=== PATIENT | female | born 1955 | race Caucasian/White ===

== ENCOUNTER 2017-12-21 17:19 | Emergency (ER) | payer BC, OTHER ==
[~2017-12-21] VITALS: Ht 160 cm; Wt 69.0 kg
[2017-12-21 17:24] VITALS: TEMP 36.3; Ht 160 cm; Wt 69.0 kg
[2017-12-21] MEDS ORDERED: ALUMINUM/MAGNESIUM SUSP 30 ML UDC PO STA (17:34)
[2017-12-21] MEDS ORDERED: PANTOprazole SOD 40 MG TAB PO STA (17:34)
--- NOTE | 2017-12-21 17:44 | EMERGENCY ROOM VISIT NOTE ---
History Report prepared by Snehal: Alfred Luz Under the Supervision of: Maya PeraltaO. First contact with patient: 17:26 Chief Complaint: CHEST PAIN Stated Complaint: CHEST PAIN History of Present Illness The patient is a 62 year old female who presents to the Emergency Room with complaints of a persistent need for a cardiac assessment that started around 2 hours ago. She states that when she first started having chest pain this afternoon, she thought was indigestion, but it did not go away and kept coming and going. The patient adds that she has also been having pain in between her shoulders, that she has currently. She says that she currently only has mild chest pain. The patient adds that she was a little lightheaded earlier which is unusual for her. The patient says that she has been exercising more recently, but did not notice any pain during her 30-minute workout yesterday or her 2 mile walk. She denies any abdominal pain or calf pain. The patient notes that her mother had 3 heart attacks, but she has no history of family members having them at an age less than 50. The patient quit smoking around 5 years ago. She has no noted history of stress tests or heart catheterizations. Source of History: patient, spouse/significant other Onset: 2 hours ago Position: chest Quality: other (pain) Timing: other (persistent need for cardiac assessment) Associated Symptoms: + back pain (between shoulder blades), No abdominal pain Note: Lightheaded earlier. Denies calf pain. Review of Systems See HPI for pertinent positives & negatives. A total of 10 systems reviewed and were otherwise negative. Past Medical & Surgical Medical Problems: (1) No pertinent past medical history Family History Heart disease Social History Smoking Status: Former Smoker Drug Use: none Marital Status: Housing Status: lives with family Current/Historical Medications Scheduled Cholecalciferol (Vitamin D3), 2,000 INTER.UNIT PO DAILY Cyanocobalamin (Vitamin B-12), 2 TABS PO DAILY Stxmsqveehd-Msxcgysveep-Hve C- (Glucosamine Chondroitin), 1 TAB PO DAILY Allergies Coded Allergies: No Known Allergies (Unverified , 03/06/13) Physical Exam Vital Signs Date Time Temp Pulse Resp B/P (MAP) Pulse Ox O2 Delivery O2 Flow Rate FiO2 12/21/17 19:00 52 16 128/74 97 Room Air 4/6/18 18:14 97 Room Air 12/21/17 18:14 97 Room Air 12/21/17 18:12 Room Air 12/21/17 18:12 64 12/21/17 17:24 36.3 69 16 150/79 97 Room Air Physical Exam GENERAL: Patient is awake, alert, and in no acute distress. Patient is resting comfortably and showing no signs of anxiety EYES: The conjunctivae are clear. The pupils are round and reactive. EARS, NOSE, MOUTH AND THROAT: The nose is without any evidence of any deformity. Mucous membranes are moist tongue is midline NECK: The neck is nontender and supple. RESPIRATORY: Normal respiratory effort is noted there is no evidence of wheezing rhonchi or rales CARDIOVASCULAR: Regular rate and rhythm noted there no murmurs rubs or gallops normal S1 normal S2 GASTROINTESTINAL: The abdomen is soft. Bowel sounds are present in all quadrants. Abdomen is nontender PELVIS: The Pelvis is stable. No tenderness to palpation is noted. BACK: No midline tenderness or or step-off noted range of motion in flexion extension as well as rotation no signs of muscle spasm noted MUSCULOSKELETAL/EXTREMITIES: There is no evidence of gross deformity full range of motion is noted in the hips and shoulders SKIN: There is no obvious evidence of any rash. There are no petechiae, pallor or cyanosis noted. NEUROLOGIC: Patient is awake alert and oriented x3. Medical Decision & Procedures ER Provider Diagnostic Interpretation: X-ray results as stated below per interpretation by me and the radiologist. CHEST ONE VIEW PORTABLE CLINICAL HISTORY: Difficult chest pain COMPARISON STUDY: No previous studies for comparison. FINDINGS: The cardiac and mediastinal contours are normal. There is no evidence of focal pulmonary consolidation. There is no evidence of failure. No pleural effusions are visualized.[ IMPRESSION: No active disease in the chest. Electronically signed by: Bridger Luis M.D. 12/21/2017 5:45 PM Dictated Date/Time: 12/21/2017 5:45 PM Laboratory Results 12/21/17 18:05 Red Blood Count 4.64, Mean Corpuscular Volume 88.8, Mean Corpuscular Hemoglobin 31.0, Mean Corpuscular Hemoglobin Concent 35.0, Mean Platelet Volume 8.7, Neutrophils (%) (Auto) 50.1, Lymphocytes (%) (Auto) 36.1, Monocytes (%) (Auto) 11.7, Eosinophils (%) (Auto) 1.5, Basophils (%) (Auto) 0.5, Neutrophils # (Auto ) 4.04, Lymphocytes # (Auto) 2.91, Monocytes # (Auto) 0.94, Eosinophils # (Auto ) 0.12, Basophils # (Auto) 0.04 12/21/17 18:05 Test 12/21/17 18:05 White Blood Count 8.06 K/uL (4.8-10.8) Red Blood Count 4.64 M/uL (4.2-5.4) Hemoglobin 14.4 g/dL (12.0-16.0) Hematocrit 41.2 % (37-47) Mean Corpuscular Volume 88.8 fL (80-100) Mean Corpuscular Hemoglobin 31.0 pg (25-34) Mean Corpuscular Hemoglobin Concent 35.0 g/dl (32-36) Platelet Count 215 K/uL (130-400) Mean Platelet Volume 8.7 fL (7.4-10.4) Neutrophils (%) (Auto) 50.1 % Lymphocytes (%) (Auto) 36.1 % Monocytes (%) (Auto) 11.7 % Eosinophils (%) (Auto) 1.5 % Basophils (%) (Auto) 0.5 % Neutrophils # (Auto) 4.04 K/uL (1.4-6.5) Lymphocytes # (Auto) 2.91 K/uL (1.2-3.4) Monocytes # (Auto) 0.94 K/uL (0.11-0.59) Eosinophils # (Auto) 0.12 K/uL (0-0.5) Basophils # (Auto) 0.04 K/uL (0-0.2) RDW Standard Deviation 42.6 fL (36.4-46.3) RDW Coefficient of Variation 13.2 % (11.5-14.5) Immature Granulocyte % (Auto) 0.1 % Immature Granulocyte # (Auto) 0.01 K/uL (0.00-0.02) Prothrombin Time 10.1 SECONDS (9.0-12.0) Prothromb Time International Ratio 1.0 (0.9-1.1) Activated Partial Thromboplast Time 24.1 SECONDS (21.0-31.0) Partial Thromboplastin Ratio 0.9 Anion Gap 5.0 mmol/L (3-11) Est Creatinine Clear Calc Drug Dose 59.0 ml/min Estimated GFR () 77.8 Estimated GFR (Non- 67.1 BUN/Creatinine Ratio 17.1 (10-20) Calcium Level 9.1 mg/dl (8.5-10.1) Total Bilirubin 0.5 mg/dl (0.2-1) Direct Bilirubin 0.1 mg/dl (0-0.2) Aspartate Amino Transf (AST/SGOT) 31 U/L (15-37) Alanine Aminotransferase (ALT/SGPT) 47 U/L (12-78) Alkaline Phosphatase 76 U/L (45-117) Total Creatine Kinase 58 U/L (26-192) Creatine Kinase MB 0.6 ng/ml (0.5-3.6) Creatine Kinase MB Ratio 1.0 (0-3.0) Troponin I < 0.015 ng/ml (0-0.045) Total Protein 7.3 gm/dl (6.4-8.2) Albumin 3.7 gm/dl (3.4-5.0) Lipase 220 U/L (73-393) Laboratory results per my review. Medications Administered Medications (Trade) Dose Ordered Sig/Pamela Route Start Time Stop Time Status Last Admin Dose Admin Al Hydroxide/Mg Hydroxide (Maalox Susp) 30 ml NOW STAT PO 12/21/17 17:34 12/21/17 17:36 DC 12/21/17 18:11 30 ML Pantoprazole Sodium (Protonix Tab) 40 mg NOW STAT PO 12/21/17 17:34 12/21/17 17:36 DC 12/21/17 18:12 40 MG ECG Per My Interpretation Indication: chest pain Rate (beats per minute): 55 Rhythm: sinus bradycardia Findings: no ectopy, other (no acute ST segment abnormalities) Comparison ECG Date: no prior available ED Course 1732: The patient was evaluated in room C4. A complete history and physical examination were performed. 1733: Protonix Tab 40 mg PO, Maalox Susp 30 ml PO. 1914: Upon reevaluation, the patient is resting. We did a heart score together in the room which came out at 3, and she would prefer to follow-up with her doctor for a stress test. I discussed the results and treatment plan with her. She verbalized agreement of the treatment plan. She was discharged home. Medical Decision Differential diagnosis: Etiologies such as cardiac ischemia, aortic dissection, pulmonary embolism, pneumonia, pneumothorax, musculoskeletal, infections, pericarditis, myocarditis , esophageal rupture, gastrointestinal, as well as others were entertained. Nursing notes reviewed. The patient is a 62-year-old female who presented to the emergency department for chest discomfort. The patient was found to have normal troponin. Her EKG did not show any acute ischemic changes. I discussed patient's laboratory and radiographic studies with her. I also discussed the limitations of the emergency department workup for chest pain with her. While in the room I calculated a heart score with the patient. I feel that her score was 2-3 by my calculation. I discussed what this would represent and that would likely represent a 1-2% chance that this represents an acute coronary syndrome or that the patient would have an acute coronary episode within the next 30 days. I explained her that she may require further study such as a provocative test such as a stress test. I encouraged her to rest and avoid any strenuous activity. I also encouraged her to continue all medications as prescribed. She was also encouraged to return to the emergency department immediately if symptoms change worsen or the need arises. Otherwise I also offered to discuss her case with the hospitalist for possible inpatient management but after our discussion she requested to follow-up with her primary care physician first. Medication Reconcilliation Current Medication List: was personally reviewed by me Blood Pressure Screening Patient's blood pressure: Elevated blood pressure Blood pressure disposition: Elevated BP felt to be situational Impression Primary Impression: Atypical chest pain Scribe Attestation The scribe's documentation has been prepared under my direction and personally reviewed by me in its entirety. I confirm that the note above accurately reflects all work, treatment, procedures, and medical decision making performed by me. Departure Information Dispostion Home / Self-Care Referrals Reinaldo Davey M.D.(PRISCILLA) (PCP) Forms Call Back Authorization, HOME CARE DOCUMENTATION FORM, IMPORTANT VISIT INFORMATION Patient Instructions ED Chest Pain Atypical Unkn Cause, [facility] Additional Instructions Continue all medications as prescribed. Rest and avoid any strenuous activity. Follow-up with your family doctor for reevaluation. I would recommend a stress test if symptoms do not resolve. Return to the emergency department immediately if symptoms change worsen or the need arises.
--- NOTE | 2017-12-21 17:47 | DIAGNOSTIC IMAGING REPORT ---
CHEST ONE VIEW PORTABLE CLINICAL HISTORY: Difficult chest pain COMPARISON STUDY: No previous studies for comparison. FINDINGS: The cardiac and mediastinal contours are normal. There is no evidence of focal pulmonary consolidation. There is no evidence of failure. No pleural effusions are visualized.[ IMPRESSION: No active disease in the chest. Electronically signed by: Bridger Luis M.D. 12/21/2017 5:45 PM Dictated Date/Time: 12/21/2017 5:45 PM
[2017-12-21 18:14] VITALS: O2SAT 97
[2017-12-21 18:21] LABS: BASO % 0.5 %; BASO ABS # 0.04 K/uL (0-0.2); EOS % 1.5 %; EOS ABS # 0.12 K/uL (0-0.5); HEMATOCRIT 41.2 % (37-47); HEMOGLOBIN 14.4 g/dL (12.0-16.0); IG# 0.01 K/uL (0.00-0.02); LYMPH % 36.1 %; LYMPH ABS # 2.91 K/uL (1.2-3.4); MEAN CELL VOLUME 88.8 fL (80-100); MEAN PLATELET VOLUME 8.7 fL (7.4-10.4); MONO % 11.7 %; MONO ABS # 0.94 K/uL (0.11-0.59); NEUT % 50.1 %; NEUT ABS # 4.04 K/uL (1.4-6.5); PLATELET COUNT 215 K/uL (130-400); RED CELL DISTRIBUTION WIDTH CV 13.2 % (11.5-14.5); RED CELL DISTRIBUTION WIDTH SD 42.6 fL (36.4-46.3); WHITE BLOOD COUNT 8.06 K/uL (4.8-10.8)
[2017-12-21] MEDS ORDERED: CHOL1000 PO (18:24)
[2017-12-21] MEDS ORDERED: CYAN100T PO (18:24)
[2017-12-21] MEDS ORDERED: GLUCTAB7 PO (18:24)
[2017-12-21 18:31] LABS: PTT PATIENT 24.1 SECONDS (21.0-31.0)
[2017-12-21 18:42] LABS: ALBUMIN 3.7 gm/dl (3.4-5.0); ALT/SGPT 47 U/L (12-78); AST/SGOT 31 U/L (15-37); BLOOD UREA NITROGEN 16 mg/dl (7-18); CALCIUM 9.1 mg/dl (8.5-10.1); CARBON DIOXIDE 25 mmol/L (21-32); CREATININE 0.91 mg/dl (0.60-1.20); GLUCOSE 125 mg/dl (70-99); LIPASE 220 U/L (73-393); POTASSIUM 3.7 mmol/L (3.5-5.1); SODIUM 137 mmol/L (136-145)
[2017-12-21 18:46] LABS: ALKALINE PHOSPHATASE 76 U/L (45-117); CKMB 0.6 ng/ml (0.5-3.6); TOTAL PROTEIN 7.3 gm/dl (6.4-8.2)
[2017-12-21 19:00] VITALS: BP 128/74; PULSE 52; O2SAT 97
== END 2017-12-21 19:30 | disposition home or self-care (01) ==
LOC: C.EDB 17:22 → C.EDC 19:30
DX: R07.89 Other chest pain (principal); Z82.49 Family history of ischemic heart disease and other diseases of the circulatory system; Z87.891 Personal history of nicotine dependence

== ENCOUNTER → 2018-01-01 | Outpatient (CLI) | payer OTHER ==
[~2018-01-01] MED LIST: CHOL1000 PO; CYAN100T PO; GLUCTAB7 PO
== END | disposition home or self-care (01) ==
LOC: C.PAPS 13:24
PROVIDERS: ATTEND Obstetrics & Gynecology
DX: Z12.4 Encounter for screening for malignant neoplasm of cervix (principal)

== ENCOUNTER → 2018-04-05 | Outpatient (CLI) | payer OTHER ==
--- NOTE | 2018-04-08 07:44 | MAMMOGRAPHY REPORT ---
BILATERAL DIGITAL SCREENING MAMMOGRAM TOMOSYNTHESIS WITH CAD: 04/05/2018 CLINICAL HISTORY: Routine screening. Patient has no complaints. TECHNIQUE: The study was acquired using full field digital technology and interpreted from soft copy. Breast tomosynthesis in addition to standard 2D mammography was performed. Current study was also ev aluated with a Computer Aided Detection (CAD) system. COMPARISON: Comparison is made to exams dated: 01/02/2012 mammogram, 08/03/2010 mammogram, 12/31/2009 mammogram, 12/22/2009 mammogram - [facility], 12/01/2008, and 12/03/2006. BREAST COMPOSITION: There are scattered areas of fibroglandular density in both breasts. FINDINGS: No suspicious masses, calcifications, or areas of architectural distortion are noted in either breast . There has been no significant interval change compared to prior exams. Scattered bilateral benign-a ppearing calcifications are again noted. Right lateral breast asymmetry on the cc view is stable com pared to multiple prior exams. IMPRESSION: BIRADS 2: BENIGN There is no mammographic evidence of malignancy. A 1 year screening mammogram is recommended.( 019) The patient will receive written notification of the results. Some breast cancers are not detected with mammography. A negative mammographic report should not scotty y biopsy if a clinically suggestive mass is present. Kalyan Xiao M.D. ah/:04/05/2018 16:08:58 Combination Presser: RT Marlon(Erasto)(M)(BD), [facility] letter sent: Normal 1/2 BI-RADS Code: ACR BI-RADS Category 2: Benign
== END | disposition home or self-care (01) ==
LOC: C.MAMM 10:26
PROVIDERS: ATTEND Obstetrics & Gynecology
DX: Z12.31 Encounter for screening mammogram for malignant neoplasm of breast (principal)

== ENCOUNTER 2021-09-21 10:19 | Observation (INO) ==
[2021-09-21] MEDS ORDERED: ASPIRIN CHEW 324 MG PO STA (11:05)
--- NOTE | 2021-09-21 11:09 | Emergency Department Note ---
History of Present Illness General Chief complaint: Cardiac Assessment Stated complaint: ABNORMAL EKG Time Seen by Provider: 09/21/21 10:53 Source: patient Mode of arrival: ambulatory Limitations: no limitations History of Present Illness Maximum Pain Intensity: 1 This patient is a 65-year-old female who was sent over from her doctor's office after after having intermittent chest pressure. She said it started over the weekend is gotten more persistent at times. She said she did walk 3 miles on Sunday however had no chest pain but had some later in the afternoon. She woke up overnight around 4:00 with the chest pain. She says it lasts up to 20 minutes there is no radiation she describes as pressure. She does get some shortness of breath with it but no pleurisy. No cough or fever or chills. No abdominal pain. No blood or melena stool no diaphoresis. Does not get nauseated or vomit. No focal numbness weakness no trauma or injury. Sometimes it occurs after eating but not persistently. She does have reflux but says this feels different. She has had the Covid vaccine Home Medications Medication Instructions Recorded Confirmed Type biotin 2,500 mcg capsule 5,000 mcg PO DAILY cap 06/26/19 09/21/21 History glucosamine sulfate 500 mg tablet 500 mg PO DAILY 06/26/19 09/21/21 History (Glucosamine) cholecalciferol (vitamin D3) 25 25 mcg PO DAILY 09/21/21 09/21/21 History mcg (1,000 unit) capsule (Vitamin D3) metformin 500 mg tablet,extended 1,000 mg PO DAILY 09/21/21 09/21/21 History release 24 hr omeprazole 20 mg tablet,delayed 20 mg PO DAILY 09/21/21 09/21/21 History release rosuvastatin 10 mg tablet 10 mg PO DAILY 09/21/21 09/21/21 History Allergies Allergy/AdvReac Type Severity Reaction Status Date / Time No Known Allergies Allergy Verified 10/01/19 10:15 Past Med/Surg History Medical History Atypical glandular cells of undetermined significance (WILMA) on cervical Pap smear Fatty liver disease, nonalcoholic GERD without esophagitis History of chicken pox Hx of abnormal mammogram Hyperlipidemia Type 2 diabetes mellitus Surgical History H/O colposcopy with cervical biopsy History of surgery on right wrist Ganglion cyst removal 2017 S/P wisdom tooth extraction Family History Family/Other Anemia Father Lung cancer Grandmother (Maternal) Diabetes Mother Heart disease Social History (Updated 09/21/21 @ 13:32 by Shereen Coates PA-C) Smoking Status: Former smoker Hx Alcohol Use: No Hx Substance Use: No Preferred Language: Maori Communication Ability: Effective 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 Beliefs That Will Affect Care: None current occupational status: retired Feels Safe at Home: Yes Safety Concerns: Feels Safe At This Time Review of Systems A total of 10 systems reviewed and were otherwise negative Physical Exam Vital Signs Vital Signs - 24 hr 09/21/21 10:37 Temperature 36.7 C Temperature Source Temporal Artery Scan Pulse Rate 63 Respiratory Rate 16 Blood Pressure 144/82 H Blood Pressure Mean 102 Pulse Oximetry 97 Sepsis Recent Fever Within 48 Hours No Sepsis New/Unexplained Change in Mental Status No Sepsis Action Taken by Nursing No Action Required General: Well developed well nourished middle-aged female who appears in no acute distress, breathing comfortably on room air. Normal speech. At present is asymptomatic HEENT: Normal cephalic atraumatic. Pupils are equal round and reactive to light. Extraocular movements are intact. Oropharynx is pink with moist mucous membranes. No swelling of the mouth lips or tongue. Neck: Supple with a midline trachea. No meningeal signs or stiffness, no JVD or bruits. No Stridor. Chest: Clear to auscultation bilaterally. No wheezes or rhonchi. No increased work of breathing. Heart: Regular rate and rhythm without murmurs or gallops. Abdomen: Soft nontender, nondistended without rebound guarding or rigidity. Extremities: No cyanosis clubbing or edema. No calf tenderness or assymetry Spine/Back. Non tender to palpation. No CVA tenderness Skin: Good turgor without rashes. Neurologic exam: Cranial nerves two through 12 are intact. Motor and sensation are intact and symmetrical throughout. Course Administered Medications Pantoprazole Sodium (Pantoprazole 40 Mg Tab) 40 mg PO QAM TARA Stop: 10/21/21 13:44 Last Admin: 09/21/21 14:10 Dose: Not Given Documented by: [id number] Discontinued Medications Aspirin (Aspirin Chew 324 Mg) 324 mg PO NOW STA Stop: 09/21/21 11:06 Last Admin: 09/21/21 11:18 Dose: 324 mg Documented by: [id number] Medical Decision Making Differential Diagnosis Coronary syndrome, arrhythmia, GERD, anxiety, musculoskeletal, electrolyte or metabolic abnormality Medical Records Attestation: I reviewed the patient's medical records. Home Medications Current Medication List: was personally reviewed by me Laboratory Data Attestation: I reviewed the patient's lab results. Result diagrams: 09/21/21 10:55 09/21/21 10:55 Lab Results 09/21/21 09/21/21 09/21/21 Range/Units 10:55 10:55 11:20 WBC 9.52 (4.8-10.8) K/uL RBC 4.87 (4.2-5.4) M/uL Hgb 15.5 (12.0-16.0) g/dL Hct 44.1 (37-47) % MCV 90.6 (80-100) fL MCH 31.8 (25-34) pg MCHC 35.1 (32-36) g/dL RDW Std Deviation 42.9 (36.4-46.3) fL RDW Coeff of Tank 13.0 (11.5-14.5) % Plt Count 201 (130-400) K/uL MPV 9.1 (7.4-10.4) fL Immature Gran % (Auto) 0.2 % Neut % (Auto) 59.1 % Lymph % (Auto) 30.1 % [place] % (Auto) 8.7 % Eos % (Auto) 1.5 % Baso % (Auto) 0.4 % Neut # (Auto) 5.62 (1.4-6.5) K/uL Lymph # (Auto) 2.87 (1.2-3.4) K/uL [place] # (Auto) 0.83 H (0.11-0.59) K/uL Eos # (Auto) 0.14 (0-0.5) K/uL Baso # (Auto) 0.04 (0-0.2) K/uL Immature Gran # (Auto) 0.02 (0.00-0.02) K/uL Sodium 138 (136-145) mmol/L Potassium 3.7 (3.5-5.1) mmol/L Chloride 104 (98-107) mmol/L Carbon Dioxide 26 (21-32) mmol/L Anion Gap 8.0 (3-11) BUN 10 (7-18) mg/dl Creatinine 0.77 (0.6-1.2) mg/dl Est Cr Clr Drug Dosing 66.9 ml/min Est GFR ( Amer) 93.3 ml/min Est GFR (Non-Af Amer) 80.5 ml/min BUN/Creatinine Ratio 13.5 (10-20) Glucose 126 H (70-99) mg/dl Calcium 9.9 (8.5-10.1) mg/dl Total Bilirubin 0.5 (0.2-1) mg/dl AST 77 H (15-37) U/L ALT 77 (12-78) Alkaline Phosphatase 75 (45-117) U/L Troponin I < 0.015 (0-0.045) ng/ml Total Protein 8.2 (6.4-8.2) gm/dl Albumin 4.0 (3.4-5.0) gm/dl Globulin 4.2 H (2.5-4.0) gm/dl Albumin/Globulin Ratio 1.0 (0.9-2) Lipase 146 (73-393) U/L SARS-CoV-2, RNA, NAAT NEGATIVE (NEGATIVE) Imaging Data Attestation: I personally reviewed and interpreted this imaging study as follows: My Impression: Chest x-rayno acute infiltrate, failure, pneumothorax seen Radiologist's Impression: Chest X-Ray 09/21/21 11:05 XR chest 1V portable HISTORY: 65 years-old Female Chest Pain atypical chest pain COMPARISON: Chest radiograph 12/21/2017 TECHNIQUE: Portable AP view of the chest FINDINGS: The cardiomediastinal and hilar silhouettes are within normal limits. No pneumothorax, pleural effusion, airspace consolidation or overt pulmonary edema. Degenerative changes of the shoulders and spine. IMPRESSION: No acute process. ACT 112: Negative or not required by law. The above report was generated using voice recognition software. It may contain grammatical, syntax or spelling errors. Electronically signed by: Ricci Gonzalez M.D. 09/21/2021 11:18 AM ECG Data Attestation: I personally reviewed and interpreted this ECG as follows: Indication: + chest pain Rate (beats per minute): 52 Rhythm: + sinus bradycardia ECG Intervals/blocks: + Normal QRS, + Normal QT and + Normal IA ECG [place]: + Normal ECG ST segments: + Nonspecific ST abnormalities ECG Findings: no PACs or no PVCs Comparison ECG Date: from (12/21/17) Change: no significant change MDM Narrative This patient comes in as described above she is been having intermittent chest pain. She was placed on a radiographer cardiac catheterization and room C4. EKG does not show any definite ischemic changes. She does however have multiple cardiac risk factors including diabetes, hypercholesteremia, smoking history and family history. Her mother had a heart attack in her 60s. She was given aspirin 324 mg chewable and a significant work-up was obtained. She was placed on a radiographer cardiac catheterization. She was Covid tested and it was negative. Her EKG does not show any change when compared to old her initial troponin is negative. She has nothing to suggest PE or aortic dissection by history. Chest x-ray does not suggest congestive heart failure, pneumonia, or pneumothorax. She has no acute electrolyte or metabolic abnormality. She does have significant cardiac risk factors and although her work-up looks okay so far I do think she needs a further cardiac work-up given the fact that she has risk factors and a story concerning for angina. I did consult the [facility] hospitalist to see her in the ER for these measures. Continuous cardiac monitoring: Orders placed in EMR for continuous cardiac monitoring. Upon my interpretation she was noted to be in sinus bradycardia with a rate of 50 Impression & Plan Chest pain, Lab test negative for COVID-19 virus, Diabetes, Family history of coronary artery disease Discharge Plan Visit Data Chief Complaint: Cardiac Assessment Stated Complaint: ABNORMAL EKG ED Provider: Andrew Martinez Discharge Problem: Chest pain, Lab test negative for COVID-19 virus, Diabetes, Family history of coronary artery disease Discharge Instructions Interventions: ED Discharge Assessment Last Done: 09/21/21 12:49 Discharge Problem: Chest pain Qualifiers: Chest pain type: precordial pain Qualified Code(s): R07.2 - Precordial pain Diabetes Qualifiers: Diabetes mellitus type: type 2 Diabetes mellitus mcc insulin use: without medical terminologist use Diabetes mellitus complication status: without complication Qualified Code(s): E11.9 - Type 2 diabetes mellitus without complications
[2021-09-21 11:13] LABS: Basophils # (auto) 0.04 K/uL (0-0.2); Basophils % (auto) 0.4 %; Eosinophils # (auto) 0.14 K/uL (0-0.5); Eosinophils % (auto) 1.5 %; Hematocrit (blood only) 44.1 % (37-47); Hemoglobin 15.5 g/dL (12.0-16.0); Immature Granulocytes # (auto) 0.02 K/uL (0.00-0.02); Immature Granulocytes % (auto) 0.2 %; Lymphocytes # (auto) 2.87 K/uL (1.2-3.4); Lymphocytes % (auto) 30.1 %; Mean Corpuscular Hemoglobin 31.8 pg (25-34); Mean Corpuscular Hgb Conc 35.1 g/dL (32-36); Mean Corpuscular Volume 90.6 fL (80-100); Mean Platelet Volume 9.1 fL (7.4-10.4); Monocytes # (auto) 0.83 K/uL (0.11-0.59); Monocytes % (auto) 8.7 %; Neutrophils # (auto) 5.62 K/uL (1.4-6.5); Neutrophils % (auto) 59.1 %; Platelet Count 201 K/uL (130-400); RDW Standard Deviation 42.9 fL (36.4-46.3); Red Blood Count 4.87 M/uL (4.2-5.4); White Blood Count 9.52 K/uL (4.8-10.8)
--- NOTE | 2021-09-21 11:20 | XRay Report ---
XR chest 1V portable HISTORY: 65 years-old Female Chest Pain atypical chest pain COMPARISON: Chest radiograph 12/21/2017 TECHNIQUE: Portable AP view of the chest FINDINGS: The cardiomediastinal and hilar silhouettes are within normal limits. No pneumothorax, pleural effusi on, airspace consolidation or overt pulmonary edema. Degenerative changes of the shoulders and spine. IMPRESSION: No acute process. ACT 112: Negative or not required by law. The above report was generated using voice recognition software. It may contain grammatical, syntax o r spelling errors. Electronically signed by: Ricci Gonzalez M.D. 09/21/2021 11:18 AM
[2021-09-21 11:33] LABS: Alanine Aminotransferase 77 (12-78); Aspartate Aminotransferase 77 U/L (15-37); BUN Creatinine Ratio 13.5 (10-20); Blood Urea Nitrogen 10 mg/dl (7-18); Calcium 9.9 mg/dl (8.5-10.1); Carbon Dioxide 26 mmol/L (21-32); Chloride 104 mmol/L (98-107); Creatinine Clr Calc Pharmacy 66.9 ml/min; Est GFR (African American) 93.3 ml/min; Est GFR (Non-African American) 80.5 ml/min; Glucose 126 mg/dl (70-99); Lipase 146 U/L (73-393); Potassium 3.7 mmol/L (3.5-5.1); Sodium 138 mmol/L (136-145)
[2021-09-21 11:38] LABS: Alkaline Phosphatase 75 U/L (45-117); Bilirubin,Total 0.5 mg/dl (0.2-1); Globulin 4.2 gm/dl (2.5-4.0); Total Protein 8.2 gm/dl (6.4-8.2); Troponin I < 0.015 ng/ml (0-0.045)
--- NOTE | 2021-09-21 12:31 | History & Physical Report ---
Date of Service September 21, 2021 Assessment & Plan (1) Chest pain: Plan: Intermittent chest discomfort x 3 days that is gradually worsening. No prior cardiac hx but multiple risk factors for cardiac disease including DM, hyperlipidemia, former smoker, and first-degree relative with [place]. - Admit for observation on telemetry - Serial troponin - Check ECHO - EKG in AM and with recurrent chest pain - NPO after midnight for potential additional testing in AM - Consult cardiology for additional recommendations (2) GERD without esophagitis: Plan: - Continue daily PPI therapy (3) Type 2 diabetes mellitus: Plan: A1c 07/26/21 = 7.3 - Hold Metformin while admitted - Accuchecks - Diabetic diet - Sliding scale insulin (4) Hyperlipidemia: Plan: - Lipid panel in AM - Continue outpatient statin - will adjust dose if needed Plan: Pt seen and reviewed with collaborating physician, Dr. Barboza. Plan of care discussed and as outlined above. DVT Prophylaxis: heparin subQ Code Status: Full code Amanda Coates PA-C History of Present Illness Chief Complaint: Chest Pain Primary Care Provider: Demetri Bernal DO This is a 65 y/o female with a PMH of DM2, GERD, and hyperlipidemia who presents to the ED today with three days of intermittent chest pain. Pt reports that she walks regularly and did a 3 mile walk on Sunday. Afterwards, she felt fine, but about two hours later, she developed chest discomfort and pressure that lasted several minutes before going away without intervention. Since then, she has continued to have episodes of this chest discomfort but they seem to be increasing in severity. She does have some associated SOB with these episodes. The chest discomfort is better with sitting up and resting but does not seem particularly worsened by exertion or by eating. She denies nausea, vomiting, diaphoresis, dizziness, palpitations, syncope or edema. No recent illness, no sick contacts, no trauma to the chest. She denies fevers, chills, cough, congestion. She received the Pfizer COVID vaccine x 3 with most recent dose on 07/06/21. She is also vaccinated for influenza and pneumonia. She had a similar episode of symptoms years ago when she had a panic attack but current symptoms have been more persistent. She also denies any significant increase in life stressors or anxiety. She denies prior cardiac work-up. Her mother did have heart disease. Pt's HR in the 50s in the ED - she notes that this is normal for her. Allergies Allergy/AdvReac Type Severity Reaction Status Date / Time No Known Allergies Allergy Verified 10/01/19 10:15 Home Medications Medication Instructions Recorded Confirmed Type biotin 2,500 mcg capsule 5,000 mcg PO DAILY cap 06/26/19 09/21/21 History glucosamine sulfate 500 mg tablet 500 mg PO DAILY 06/26/19 09/21/21 History (Glucosamine) cholecalciferol (vitamin D3) 25 25 mcg PO DAILY 09/21/21 09/21/21 History mcg (1,000 unit) capsule (Vitamin D3) metformin 500 mg tablet,extended 1,000 mg PO DAILY 09/21/21 09/21/21 History release 24 hr omeprazole 20 mg tablet,delayed 20 mg PO DAILY 09/21/21 09/21/21 History release rosuvastatin 10 mg tablet 10 mg PO DAILY 09/21/21 09/21/21 History Past Med/Surg History Medical History Atypical glandular cells of undetermined significance (WILMA) on cervical Pap smear Fatty liver disease, nonalcoholic GERD without esophagitis History of chicken pox Hx of abnormal mammogram Hyperlipidemia Type 2 diabetes mellitus Surgical History H/O colposcopy with cervical biopsy History of surgery on right wrist Ganglion cyst removal 2017 S/P wisdom tooth extraction Family History Family/Other Anemia Father Lung cancer Grandmother (Maternal) Diabetes Mother Heart disease Social History (Updated 09/21/21 @ 13:32 by Shereen Coates PA-C) Smoking Status: Former smoker Hx Alcohol Use: No Hx Substance Use: No Preferred Language: Norwegian Communication Ability: Effective Coding Tech Required: No Beliefs That Will Affect Care: None current occupational status: retired Feels Safe at Home: Yes Safety Concerns: Feels Safe At This Time Review of Systems Review of Systems: All systems reviewed & are unremarkable except as noted in HPI & below Constitutional: + anorexia; no fever, no chills and no sweats Eyes: no diplopia and no worsening vision Ear, Nose, Mouth, Throat: no nasal congestion, no nasal discharge and no sore throat Respiratory: as per Subjective / HPI; no cough and no wheezing Cardiovascular: as per Subjective / HPI; no palpitations, no syncope and no edema Gastrointestinal: no abdominal pain, no belching, no bloating, no nausea, no vomiting, no diarrhea/loose stools and no blood in stools Genitourinary: no dysuria, no urinary frequency and no hematuria Musculoskeletal: no back pain and no neck pain Integumentary: no rash, no bleeding lesions, no yellowing of the skin and no unusual bruising Neurologic: no falls, no generalized weakness, no seizure-like activity, no dizziness and no headache(s) Psychiatric: no depression and no anxiety Physical Exam Constitutional: well developed and well nourished; no acute distress Eyes: PERRL, conjunctivae normal, anicteric sclerae Neck: trachea midline Respiratory: no respiratory distress and no labored breathing Auscultation: lungs clear to auscultation bilaterally; no rales, no rhonchi and no wheezes Cardiovascular: Rate/Rhythm: regular rhythm and + bradycardic Heart Sounds: no murmur Vessels: dorsalis pedis pulses present and radial pulses present Extremities: no calf tenderness and no pedal edema Gastrointestinal (Abdomen): Inspection/Auscultation: normal bowel sounds; abdomen not distended Percussion/Palpation: abdomen soft; abdomen nontender Musculoskeletal: Head/Neck/Chest: normocephalic, head atraumatic and neck supple Skin: no rashes and no jaundice Neurologic: moves all extremities; no focal motor deficits Psychiatric: A+Ox3, euthymic affect Results & Data Results & Data ([facility]) Vital Signs (Past 12 Hours) Vital Signs Temp Pulse Resp BP Pulse Ox 09/21/21 10:37 36.7 C 63 16 144/82 H 97 Laboratory Results Laboratory Results - last 24 hr 09/21/21 09/21/21 09/21/21 10:55 10:55 11:20 WBC 9.52 RBC 4.87 Hgb 15.5 Hct 44.1 MCV 90.6 MCH 31.8 MCHC 35.1 RDW Std Deviation 42.9 RDW Coeff of Tank 13.0 Plt Count 201 MPV 9.1 Immature Gran % (Auto) 0.2 Neut % (Auto) 59.1 Lymph % (Auto) 30.1 [place] % (Auto) 8.7 Eos % (Auto) 1.5 Baso % (Auto) 0.4 Neut # (Auto) 5.62 Lymph # (Auto) 2.87 [place] # (Auto) 0.83 H Eos # (Auto) 0.14 Baso # (Auto) 0.04 Immature Gran # (Auto) 0.02 Sodium 138 Potassium 3.7 Chloride 104 Carbon Dioxide 26 Anion Gap 8.0 BUN 10 Creatinine 0.77 Est Cr Clr Drug Dosing 66.9 Est GFR ( Amer) 93.3 Est GFR (Non-Af Amer) 80.5 BUN/Creatinine Ratio 13.5 Glucose 126 H Calcium 9.9 Total Bilirubin 0.5 AST 77 H ALT 77 Alkaline Phosphatase 75 Troponin I < 0.015 Total Protein 8.2 Albumin 4.0 Globulin 4.2 H Albumin/Globulin Ratio 1.0 Lipase 146 SARS-CoV-2, RNA, NAAT NEGATIVE Diagnostic Findings Chest X-ray 09/21/21 - IMPRESSION: No acute process. Medications Administered Discontinued Medications Aspirin (Aspirin Chew 324 Mg) 324 mg PO NOW STA Stop: 09/21/21 11:06 Last Admin: 09/21/21 11:18 Dose: 324 mg Documented by: [id number] Code Status & VTE Plan VTE Prophylaxis Plan VTE Prophylaxis will be ordered: Yes Supervising Physician Co-Signing Physician Notes Patient is a 65-year-old female with history of diabetes mellitus, GERD, former smoker and other medical problems presents with history of intermittent retrosternal chest pain which at times radiated to back. She reports chest pain is gradually been worsening since last 3 days. Reports associated shortness of breath but denies any dizziness, nausea, diaphoresis. Please review HPI for complete details of presentation. Initial troponin, EKG showed no signs of acute ischemia. She received aspirin while in ED and currently chest pain has been resolving. She was noted to have sinus bradycardia on monitor. On exam patient is moderately built and nourished, no apparent distress, normocephalic atraumatic, EOMI, normal breath sounds, clear to auscultation, S1-S2, b radycardic, no murmur, no pedal edema, abdomen soft, nontender, normal bowel sounds, alert, awake, oriented, grossly no focal deficits. Patient is admitted for management of chest pain rule out ACS. Will trend cardiac enzymes, check resting echo and repeat EKG in the morning. We will keep her n.p.o. after midnight and consult cardiology for further recommendations. Agree with continuing PPI for GERD. Hold Metformin and utilizing insulin therapy while hospitalized for management of diabetes mellitus. Also check lipid panel and TSH. I personally reviewed the record. Patient is interviewed and examined at bedside. Patient's care is coordinated with Shereen Coates PA-C. Please refer to the documentation above for details of patient's presentation and for discussion of other issues.
[2021-09-21] MEDS ORDERED: GLUCOSE 40% GEL 15 GM TUBE PO PRN (12:50)
[2021-09-21] MEDS ORDERED: NITROGLYCERIN SL 0.4 MG/TAB TAB SL PRN (12:50)
[2021-09-21] MEDS ORDERED: CARBOHYDRATES FOR HYPOGLYCEMIA PO PRN (12:50)
[2021-09-21] MEDS ORDERED: DEXTROSE 50% 50 ML SYRINGE IV PRN (12:50)
[2021-09-21] MEDS ORDERED: ACETAMINOPHEN 325 MG TAB PO PRN (12:50)
[2021-09-21] MEDS ORDERED: GLUCOSE 10 TABS/TUBE PO PRN (12:50)
[2021-09-21] MEDS ORDERED: GLUCAGON FOR INJ 1 MG VIAL SQ PRN (12:50)
[2021-09-21] MEDS ORDERED: PANTOprazole 40 MG TAB PO SCH (13:45)
[2021-09-21] MEDS: HEPARIN SOD 5,000 UNIT/0.5 ML VIAL SQ SCH ×2 (14:59→15:04)
--- NOTE | 2021-09-21 15:30 | Cardiology Consultation ---
Date of Consultation September 21, 2021 Assessment & Plan (1) GERD without esophagitis: (2) Chest pain: (3) Type 2 diabetes mellitus: The patient's chest pain is atypical, her EKG is normal as well as her echocardiogram and her cardiac troponins are negative. I would recommend the patient be discharged and we can arrange for a stress test as an outpatient. History of Present Illness Attending Physician: Manuel Barboza MD History of Present Illness This is a 65-year-old female with no prior history of heart disease. Within the past year she has been started on Metformin for diabetes. No significant history of hypertension. She has mild hypercholesterolemia and stopped smoking in the . She was in her usual state of health. She walks quite frequently with her along [address]. She was able to walk approximately 3 miles over the weekend without difficulty. She has also been able to do her activities of daily living including housework and chores without developing chest pain. Over the past few days she has had intermittent chest heaviness which seems to occur when she is lying flat. It has awoken her from sleep. Its not associated with shortness of breath and does not radiate to her arms or back. It is not activity related. After admission her EKG is sinus and to my interpretation within normal limits. Cardiac troponins are negative. I have reviewed her echocardiogram and it reveals no wall motion abnormalities or other findings that would suggest ischemic heart disease. She is currently pain-free. Allergies Allergy/AdvReac Type Severity Reaction Status Date / Time No Known Allergies Allergy Verified 10/01/19 10:15 Home Medications Medication Instructions Recorded Confirmed Type biotin 2,500 mcg capsule 5,000 mcg PO DAILY cap 06/26/19 09/21/21 History glucosamine sulfate 500 mg tablet 500 mg PO DAILY 06/26/19 09/21/21 History (Glucosamine) cholecalciferol (vitamin D3) 25 25 mcg PO DAILY 09/21/21 09/21/21 History mcg (1,000 unit) capsule (Vitamin D3) metformin 500 mg tablet,extended 1,000 mg PO DAILY 09/21/21 09/21/21 History release 24 hr omeprazole 20 mg tablet,delayed 20 mg PO DAILY 09/21/21 09/21/21 History release rosuvastatin 10 mg tablet 10 mg PO DAILY 09/21/21 09/21/21 History Patient History Medical History Atypical glandular cells of undetermined significance (WILMA) on cervical Pap smear Fatty liver disease, nonalcoholic GERD without esophagitis History of chicken pox Hx of abnormal mammogram Hyperlipidemia Type 2 diabetes mellitus Surgical History H/O colposcopy with cervical biopsy History of surgery on right wrist Ganglion cyst removal 2017 S/P wisdom tooth extraction Family History Family/Other Anemia Father Lung cancer Grandmother (Maternal) Diabetes Mother Heart disease Social History Smoking Status: Former smoker Hx Alcohol Use: No Hx Substance Use: No Preferred Language: Kinyarwanda Communication Ability: Effective 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 All other 10 point review of systems are negative. Physical Exam Physical Exam: General: no acute distress and stated age Head: normocephalic, no masses, lesions, tenderness or abnormalities Eyes: conjunctiva are pink and non-injected, sclera clear Neck: supple, no adenopathy, no bruits, normal jugular venous pulse, no hepatojugular reflux Chest: normal shape and normal respiratory effort Lungs: clear to auscultation and percussion Cardiac Exam: - regular rate & rhythm, no murmurs gallops or rubs - normal S1, normal S2 Pulses: 2(+) throughout Abdomen: abdomen soft, non-tender, no abnormal masses and no hepatosplenomegaly Musculoskeletal: no gait disturbance, no joint inflammation, no deforming arthritis Extremities: no edema and no cyanosis Neuro: grossly normal exam Results & Data ([facility]) Vital Signs (Past 12 Hours) Vital Signs Temp Pulse Pulse Resp BP BP Pulse Ox 09/21/21 12:50 52 L 16 135/66 97 09/21/21 12:49 54 L 16 135/66 97 09/21/21 10:37 36.7 C 63 16 144/82 H 97 Pulse Ox 09/21/21 12:50 97 09/21/21 12:49 01/05/22 10:37 Laboratory Results Laboratory Results - last 24 hr 09/21/21 09/21/21 09/21/21 10:55 10:55 11:20 WBC 9.52 RBC 4.87 Hgb 15.5 Hct 44.1 MCV 90.6 MCH 31.8 MCHC 35.1 RDW Std Deviation 42.9 RDW Coeff of Tank 13.0 Plt Count 201 MPV 9.1 Immature Gran % (Auto) 0.2 Neut % (Auto) 59.1 Lymph % (Auto) 30.1 [place] % (Auto) 8.7 Eos % (Auto) 1.5 Baso % (Auto) 0.4 Neut # (Auto) 5.62 Lymph # (Auto) 2.87 [place] # (Auto) 0.83 H Eos # (Auto) 0.14 Baso # (Auto) 0.04 Immature Gran # (Auto) 0.02 Sodium 138 Potassium 3.7 Chloride 104 Carbon Dioxide 26 Anion Gap 8.0 BUN 10 Creatinine 0.77 Est Cr Clr Drug Dosing 66.9 Est GFR ( Amer) 93.3 Est GFR (Non-Af Amer) 80.5 BUN/Creatinine Ratio 13.5 Glucose 126 H Calcium 9.9 Total Bilirubin 0.5 AST 77 H ALT 77 Alkaline Phosphatase 75 Troponin I < 0.015 Total Protein 8.2 Albumin 4.0 Globulin 4.2 H Albumin/Globulin Ratio 1.0 Lipase 146 SARS-CoV-2, RNA, NAAT NEGATIVE Medications Administered Current Inpatient Medications Acetaminophen (Acetaminophen 325 Mg Tab) 650 mg PO Q4H PRN PRN Reason: Pain or Fever Stop: 10/21/21 12:49 Aspirin (Aspirin 81 Mg Ectab) 81 mg PO QAM [facility] Stop: 10/22/21 08:59 Dextrose (Dextrose 50% 50 Ml Syringe) 25 - 50 ml IV UD PRN; Protocol PRN Reason: Hypoglycemia Protocol Stop: 10/21/21 12:49 Glucagon (Glucagon For Inj 1 Mg Vial) 1 mg SQ UD PRN; Protocol PRN Reason: Hypoglycemia Protocol Stop: 10/21/21 12:49 Glucose (Glucose 10 Tabs/Tube) 4 - 8 tabs PO UD PRN; Protocol PRN Reason: Hypoglycemia Protocol Stop: 10/21/21 12:49 Glucose (Glucose 40% Gel 15 Gm Tube) 15 - 30 gm PO UD PRN; Protocol PRN Reason: Hypoglycemia Protocol Stop: 10/21/21 12:49 Heparin Sodium (Porcine) (Heparin Sod 5,000 Unit/0.5 Ml Vial) 5,000 units SQ Q8 TARA Stop: 10/21/21 13:59 Last Admin: 09/21/21 15:04 Dose: Not Given Documented by: Insulin Aspart (Insulin Aspart Per Unit) 0 units SC ACHS TARA Stop: 10/21/21 16:29 Miscellaneous (Carbohydrates For Hypoglycemia ) 15 - 30 gm PO UD PRN PRN Reason: Hypoglycemia Protocol Stop: 10/21/21 12:49 Nitroglycerin (Nitroglycerin Sl 0.4 Mg/Tab Tab) 0.4 mg SL UD PRN PRN Reason: Chest Pain Stop: 10/21/21 12:49 Pantoprazole Sodium (Pantoprazole 40 Mg Tab) 40 mg PO QAM TARA Stop: 10/21/21 13:44 Last Admin: 09/21/21 14:10 Dose: Not Given Documented by: Rosuvastatin Calcium (Rosuvastatin Calcium 10 Mg Tab) 10 mg PO DAILY TARA Stop: 10/22/21 08:59 Vitamin D (Cholecalciferol 1,000 Units 25 Mcg Tab) 1,000 units PO DAILY TARA Stop: 10/22/21 08:59 (1) Chest pain Chest pain type: precordial pain Qualified Code(s): R07.2 - Precordial pain
--- NOTE | 2021-09-21 16:15 | Electrocardiogram Report ---
Test Reason : Blood Pressure : / mmHG Vent. Rate : 052 BPM Atrial Rate : 052 BPM P-R Int : 142 ms QRS Dur : 080 ms QT Int : 434 ms P-R-T Axes : 050 -08 050 degrees QTc Int : 403 ms Sinus bradycardia Nonspecific ST abnormality Abnormal ECG When compared with ECG of 21-DEC-2017 17:27, No significant change was found Confirmed by Med Eubanks ([id number]) on 09/21/2021 4:14:35 PM Referred By: Demetri Bernal Confirmed By:Med Eubanks
[2021-09-21] MEDS ORDERED: INSULIN ASPART PER UNIT SC SCH (16:30)
--- NOTE | 2021-09-21 17:09 | Discharge Summary ---
Date of Service September 21, 2021 Admission HPI Per Admitting Provider This is a 65 y/o female with a PMH of DM2, GERD, and hyperlipidemia who presents to the ED today with three days of intermittent chest pain. Pt reports that she walks regularly and did a 3 mile walk on Sunday. Afterwards, she felt fine, but about two hours later, she developed chest discomfort and pressure that lasted several minutes before going away without intervention. Since then, she has continued to have episodes of this chest discomfort but they seem to be increasing in severity. She does have some associated SOB with these episodes. The chest discomfort is better with sitting up and resting but does not seem particularly worsened by exertion or by eating. She denies nausea, vomiting, diaphoresis, dizziness, palpitations, syncope or edema. No recent illness, no sick contacts, no trauma to the chest. She denies fevers, chills, cough, congestion. She received the [place] COVID vaccine x 3 with most recent dose on 07/06/21. She is also vaccinated for influenza and pneumonia. She had a sterling lar episode of symptoms years ago when she had a panic attack but current symptoms have been more persistent. She also denies any significant increase in life stressors or anxiety. She denies prior cardiac work-up. Her mother did have heart disease. Pt's HR in the 50s in the ED - she notes that this is normal for her. Admission Exam Per Admitting Provider Physical Exam Constitutional: well developed and well nourished; no acute distress Eyes: PERRL, conjunctivae normal, anicteric sclerae Neck: trachea midline Respiratory: no respiratory distress and no labored breathing Auscultation: lungs clear to auscultation bilaterally; no rales, no rhonchi and no wheezes Cardiovascular: Rate/Rhythm: regular rhythm and + bradycardic Heart Sounds: no murmur Vessels: dorsalis pedis pulses present and radial pulses present Extremities: no calf tenderness and no pedal edema Gastrointestinal (Abdomen): Inspection/Auscultation: normal bowel sounds; abdomen not distended Percussion/Palpation: abdomen soft; abdomen nontender Musculoskeletal: Head/Neck/Chest: normocephalic, head atraumatic and neck supple Skin: no rashes and no jaundice Neurologic: moves all extremities; no focal motor deficits Psychiatric: A+Ox3, euthymic affect Principal Diagnosis Atypical Chest Pain Discharge Data Allergies Allergy/AdvReac Type Severity Reaction Status Date / Time No Known Allergies Allergy Verified 10/01/19 10:15 Consultations 09/21/21 12:29 ED Decision to Admit Stat 09/21/21 13:20 Consult Cardiology Routine Hospital Course (1) Chest pain: Intermittent chest discomfort x 3 days that is gradually worsening. No prior cardiac hx but multiple risk factors for cardiac disease including DM, hyperlipidemia, former smoker, and first-degree relative with [place]. Atypical chest pain DD: GERD Negative troponins x2 Echo showed no wall motion abnormality Appreciate cardiology input EKG showed no signs of acute ischemia Patient prefers to get a stress test as outpatient as scheduled next week given pandemic, she is concerned to be hospitalized for prolonged period Continue PPI Off Note: Patient not taking PPI on an empty stomach but takes with food. Advised to take it on empty stomach 20 to 30 minutes prior to food intake. Advised to follow-up with cardiology in 1 week (2) GERD without esophagitis: - Continue daily PPI therapy (3) Type 2 diabetes mellitus: A1c 07/26/21 = 7.3 - Hold Metformin while admitted - Accuchecks - Diabetic diet - Sliding scale insulin (4) Hyperlipidemia: -On statin DVT Prophylaxis: Heparin SQ Code Status: Full code Total Time Total Time Spent Total Time Spent (In Minutes): 40 minutes Discharge Plan Discharge Items Patient Disposition: Home - Self-Care Reason For Visit: CHEST PAIN Discharge Diagnosis: Chest Pain likely GERD Activity: Per Instructions section Exercise/Sports: Wait until after follow-up appointment Non-emergency contact: Primary Care Provider and Printed Circuit Board Pcb Designer Call non-emergency contact if: you have any medication questions, your symptoms worsen, your pain is concerning for you and you have a fever Follow-up/Referrals: Demetri Bernal DO [Primary Care Provider] - Diet: Carb Consistent or DM2 and Heart Healthy Addtl Attending Provider Instructions: Follow-up with your primary care physician Dr. Bernal in 1 week Follow-up with your wealth management manager Dr. Cano for stress test as scheduled next week Seek immediate medical attention if your symptoms reoccur or worsen Please take all medications as instructed on discharge list below. Please call if you have any questions or problems. You can reach a [facility] hospitalist on duty at [facility] 24 hours a day by calling [phone] Pending Studies at Discharge: No Stand-Alone Forms: [facility], Smoking Cessation Medications and DC Order Prescriptions: Continued biotin 2,500 mcg capsule 5,000 mcg PO DAILY RF: 0 glucosamine sulfate [Glucosamine] 500 mg tablet 500 mg PO DAILY RF: 0 metformin 500 mg tablet extended release 24 hr 1,000 mg PO DAILY RF: 0 rosuvastatin 10 mg tablet 10 mg PO DAILY RF: 0 cholecalciferol (vitamin D3) [Vitamin D3] 25 mcg (1,000 unit) Capsule 25 mcg PO DAILY RF: 0 omeprazole 20 mg Tablet,Delayed Release (Dr/Ec) 20 mg PO DAILY RF: 0 Discharge Orders: Discharge Order (Routine); Ordered 09/21/21 Ordered By: Manuel Barboza Admission Data Admit Date/Time: 09/21/21 12:17 Attending Provider: Manuel Barboza Admit Provider: Manuel Barboza Primary Care Provider: Demetri Bernal Other Providers: Manuel Barboza ; Gustavo Cano
[2021-09-21 17:49] LABS: Thyroid Stimulating Hormone 0.642 uIu/ml (0.300-4.500); Troponin I < 0.015 ng/ml (0-0.045)
[2021-09-22] MEDS ORDERED: ASPIRIN 81 MG ECTAB PO SCH (09:00)
[2021-09-22] MEDS ORDERED: CHOLECALCIFEROL 1,000 UNITS 25 MCG TAB PO SCH (09:00)
[2021-09-22] MEDS ORDERED: ROSUVASTATIN CALCIUM 10 MG TAB PO SCH (09:00)
== END 2021-09-21 17:25 | disposition home or self-care (01) ==
LOC: ED 10:19 → EDINP 10:19